=== PATIENT | male | born 1995 | race Caucasian/White ===

== ENCOUNTER → 2018-08-18 | Outpatient (CLI) | payer BC ==
--- NOTE | 2018-08-18 17:12 | PCVCIMAG ---
APPROVED REPORT Study performed: 08/18/2018 15:29:50 Exam: Stress Echocardiogram Indication: Hypertension, Palpitations Patient Location: Echo lab Stress Nurse: Ramandeep Bahena RN Room #: 2 Status: routine Ht: 6 ft 4 in HR: 76 bpm BP: 150/84 mmHg Rhythm: NSR Medical History Medical History: intermittent hypertensive blood pressure readings Previous Cardiac Procedures: none Pretest Chest Pain Characteristics: No chest pain Exercise History: Physically active Procedure The patient underwent an Exercise Stress Test using the Fede Protocol. Blood pressure, heart rate, and EKG were monitored. An Echocardiogram was performed by coroner technician in four stages in quad fashion. At peak stress, four selected images were obtained and placed side by side with resting images for comparison. Stress Test Details Stress Test: Exercise stress testing was performed using a Fede protocol. HR Resting HR: 176 bpmMax Heart Rate (APMHR): 199 bpm Max HR Achieved: 196 bpmTarget HR (85% APMHR): 169 bpm % of APMHR: 98 Recovery HR: 100 bpm HR response to stress: Normal HR response to stress BP Resting BP: 150/84 mmHg Max BP: 180/70 mmHg Recovery BP: 142/86 mmHg BP response to stress: Normal blood pressure response to stress. ECG Resting ECG: Sinus Rhythm Stress ECG: Sinus Rhythm ST Change: Non-ischemic Arrhythmia: None Recovery ECG: Sinus Rhythm Recovery ST Change: Non-ischemic Recovery Arrhythmia: None Clinical Reason for Termination: Maximal effort Stress Symptoms: none Exercise duration: 14 min 59 sec Highest Stage Achieved: Stage 5: 5.0 mph at 18% grade. Exercise capacity: 17.5 METs Overall Exercise Capacity for Age: Excellent Scale: Active Angina Score: None No complications. Stress ECG Conclusion The patient exercised according to the FEDE protocol for 14:49 mins; achieving a work level of 17.5 METS. The resting heart rate of 76 bpm solange to a maximum heart rate of 196 bpm. This value represent 98% of the maximal, age-predicted heart rate. The resting blood pressure of 150/84 mmHg, solange to a maximum blood pressure of 180/70mmHg. The exercise test was stopped due to fatigue. We were unable to compress the cuff sufficiently for an accurate reading in stage I. The cuff was changed to a large long from a regular long. The readings were immediately lower by 70 points. The blood pressure was normal throughout the rest of the test and in recovwery. Pre-Stress Echo The resting Echocardiogram showed normal left ventricular contractility with an estimated Ejection Fraction of about 55-60%. Normal wall motion in all segments on baseline images. Post-Stress Echo The stress Echocardiogram showed normal left ventricular contractility with an estimated Ejection Fraction of about 65-70%. Normal augmentation of wall motion in all segments on post stress images. Clinical No clinical or ECG evidence for ischemia. Conclusion Clinical Response: Non-ischemic Exercise Capacity: Superior Stress ECG Response: Non-ischemic Stress Echo Images: Non-ischemic No clinical, EKG or echocardiographic evidence for ischemia. No echocardiographic evidence for exercise induced ischemia. Normal stress echocardiogram with maximal exercise stress. No prior study available for comparison. <Conclusion> No clinical, EKG or echocardiographic evidence for ischemia. No echocardiographic evidence for exercise induced ischemia. Normal stress echocardiogram with maximal exercise stress.
== END | disposition home or self-care (01) ==
LOC: PCVCIMAG 15:20
PROVIDERS: ATTEND Internal Medicine Cardiovascular Disease
DX: I10 Essential (primary) hypertension (principal); R00.2 Palpitations
CPT/HCPCS: 93325; 93351